=== PATIENT | male | born 1950 | race Caucasian/White ===

== ENCOUNTER 2020-09-22 11:57 | Outpatient (CLI) | payer BC ==
--- NOTE | 2020-09-22 13:58 | XRAY Report ---
PROCEDURE: Foot 3 View RT INDICATIONS: PAIN IN RIGHT 5TH METATARSAL TECHNIQUE: 3 views of the foot were acquired. COMPARISON: FINDINGS: Bones: No fractures or dislocations. No suspicious bony lesions. Soft tissues: No tibiotalar joint effusion. Achilles tendon appears normal. IMPRESSION: Normal right foot. No abnormality identified of the right fifth metatarsal. Reviewed by: Brian Silva on 09/22/2020 1:57 PM PDT Approved by: Brian Silva on 09/22/2020 1:57 PM PDT Station ID: [id number]
== END 2020-09-22 11:58 | disposition home or self-care (01) ==
LOC: DI.N 11:57
PROVIDERS: ATTEND Physician Assistant
DX: M79.671 Pain in right foot (principal)

== ENCOUNTER 2021-09-01 08:00 | Outpatient (CLI) | payer BC ==
[2021-09-01 16:46] LABS: BASOPHILS # (AUTO) 0.1 10^3/uL (0.0-0.1); BASOPHILS % (AUTO) 0.9 %; EOSINOPHILS # (AUTO) 0.1 10^3/uL (0.0-0.7); EOSINOPHILS % (AUTO) 2.5 %; HGB - HEMOGLOBIN 15.4 g/dL (14.0-18.0); LYMPHOCYTES # (AUTO) 1.5 10^3/uL (1.5-3.5); LYMPHOCYTES % (AUTO) 26.2 %; MEAN CORPUSCULAR HEMOGLOBIN 32.3 pg (27.0-31.0); MEAN CORPUSCULAR HGB CONC 33.5 g/dL (32.0-36.0); MEAN CORPUSCULAR VOLUME 96.4 fL (80.0-94.0); MEAN PLATELET VOLUME 12.2 fL (7.4-11.4); MONOCYTES # (AUTO) 0.6 10^3/uL (0.0-1.0); MONOCYTES % (AUTO) 10.8 %; NEUTROPHILS # (AUTO) 3.4 10^3/uL (1.5-6.6); NEUTROPHILS % (AUTO) 59.4 %; PLT - PLATELET COUNT 141 10^3/uL (130-450); RED BLOOD COUNT 4.77 10^6/uL (4.70-6.10); RED CELL DISTRIBUTION WIDTH 13.2 % (12.0-15.0); WHITE BLOOD COUNT 5.6 x10^3/uL (4.8-10.8)
[2021-09-01 16:59] LABS: ALBUMIN/GLOBULIN RATIO 1.1 (1.0-2.2); ALKALINE PHOSPHATASE 50 IU/L (42-121); ALT ALANINE AMINOTRANSFERASE 22 IU/L (10-60); AST ASPARTATE AMINOTRANSFERASE 15 IU/L (10-42); BILIRUBIN,TOTAL 0.7 mg/dL (0.2-1.0); BUN - BLOOD UREA NITROGEN 27 mg/dL (6-20); CALCIUM 8.9 mg/dL (8.5-10.3); CARBON DIOXIDE - CO2 25 mmol/L (21-32); CHLORIDE 103 mmol/L (101-111); CHOL/HDL RATIO 4.1 (<5.0); CHOLESTEROL 235 mg/dL; CREATININE 0.8 mg/dL (0.6-1.2); GFR - MDRD 96 (>89); GLUCOSE 106 mg/dL (70-100); HDL CHOLESTEROL 57 mg/dL; LDL CHOLESTEROL,CALCULATED 144 mg/dL; LDL/HDL RATIO 2.5 (<3.6); POTASSIUM 4.1 mmol/L (3.5-5.0); SODIUM 141 mmol/L (135-145); TOTAL PROTEIN 7.5 g/dL (6.7-8.2); TRIGLYCERIDES 172 mg/dL; VLDL CHOLESTEROL 34 mg/dL
[2021-09-01 17:11] LABS: THYROID STIMULATING HORMONE 2.69 uIU/mL (0.34-5.60)
[2021-09-05 12:58] LABS: ESTIMATED AVERAGE GLUCOSE 111 mg/dL (70-100); HEMOGLOBIN A1c% 5.5 % (4.27-6.07)
== END 2021-09-01 23:59 | disposition home or self-care (01) ==
LOC: LAB.R 08:00
PROVIDERS: ATTEND Internal Medicine
DX: G62.9 Polyneuropathy, unspecified (principal); M19.90 Unspecified osteoarthritis, unspecified site; Z11.59 Encounter for screening for other viral diseases; R63.5 Abnormal weight gain; Z80.42 Family history of malignant neoplasm of prostate; Z79.899 Other long term (current) drug therapy; R73.01 Impaired fasting glucose
CPT/HCPCS: 80053; 80061; 82607; 83036; 83721; 84153; 84443; 85025; 86803

== ENCOUNTER 2021-09-06 08:00 | Outpatient (CLI) | payer BC ==
[2021-09-07 05:29] LABS: HCV AB 0.2 s/co ratio (0.0-0.9)
== END 2021-09-06 23:59 | disposition home or self-care (01) ==
LOC: LAB.R 08:00
PROVIDERS: ATTEND Internal Medicine
DX: Z11.59 Encounter for screening for other viral diseases (principal)
CPT/HCPCS: 86803

== ENCOUNTER 2022-05-23 05:52 | Emergency (ER) | payer BC ==
[2022-05-23] MEDS ORDERED: SODIUM CHLORIDE 0.9% 1,000 ML IV STA (06:28)
[2022-05-23] MEDS ORDERED: MORPHINE 2 MG/ML CARPUJECT IVP STA (06:28)
[2022-05-23] MEDS ORDERED: KETOROLAC 30 MG/ML VIAL IVP STA (06:28)
[2022-05-23] MEDS ORDERED: ONDANSETRON 4 MG/2 ML VIAL IVP STA (06:28)
--- NOTE | 2022-05-23 06:35 | ED Physician Documentation ---
History of Present Illness - Stated complaint Stated Complaint: MALE /ABD PX - Chief complaint Chief Complaint: Abd Pain - Additonal information Additional information: Patient 71-year-old male presenting to the emergency department was right-sided flank and abdominal pain. Reports pain began on Saturday. Was on his way to the emergency department however it resolved Saturday evening. Shortly after this he had an episode of hematuria. Was seen by primary care and was told that he likely has kidney stones. Last night his pain returned. There is no associated fever, nausea or vomiting. He does report that he has had pink or red-tinged urine x1 day. Endorses for taking gabapentin for pain control. Denies history of kidney stones. Review of Systems Constitutional: denies: Fever Eyes: denies: Loss of vision Ears: denies: Loss of hearing Nose: denies: Rhinorrhea / runny nose Throat: denies: Dental pain / toothache Cardiac: denies: Chest pain / pressure Respiratory: denies: Dyspnea GI: reports: Abdominal Pain. denies: Nausea, Vomiting, Diarrhea : reports: Hematuria. denies: Dysuria PD PAST MEDICAL HISTORY - Past Medical History Past Medical History: Yes GI: Other - Past Surgical History Past Surgical History: Yes General: Appendectomy Ortho: Hip replacement - Allergies Allergies/Adverse Reactions: Allergies Allergy/AdvReac Type Severity Reaction Status Date / Time No Known Drug Allergies Allergy Verified 05/23/22 06:19 - Social History Does the pt smoke?: No Smoking Status: Never smoker Does the pt drink ETOH?: No Does the pt have substance abuse?: No - Immunizations Immunizations are current?: Yes - POLST Patient has POLST: No PD ED PE NORMAL - Vitals Vital signs reviewed: Yes - General General: Alert and oriented X 3, No acute distress - HEENT HEENT: Atraumatic - Neck Neck: Supple, no meningeal sign - Cardiac Cardiac: RRR - Respiratory Respiratory: No respiratory distress - Abdomen Abdomen: Normal bowel sounds, Non tender - Male Male : Deferred - Rectal Rectal: Deferred - Derm Derm: Normal color - Extremities Extremities: No deformity Results - Vitals Vitals: Vital Signs - 24 hr 05/23/22 05/23/22 05:55 06:30 Temperature 37.0 C Heart Rate 84 74 Respiratory 16 Rate Blood Pressure 147/105 H 144/107 H O2 Saturation 97 95 Oxygen O2 Source Room air PD Medical Decision Making - ED course Complexity details: other (Discussed with oncoming physician.) Drug Therapy Requiring Monitoring for Toxicity: IV morphine ED course: Patient 71-year-old male presenting to the emergency department with complaint of right-sided flank pain and hematuria. Afebrile, hematin stable on arrival to the emergency department. No focal tenderness, guarding, rebound or rigidity appreciated on abdominal exam. Initial differential diagnosis included but limited to nephrolithiasis, cystitis, pyelonephritis, bladder mass. Initial work-up ordered including fluids and medication for pain control. At this time we will be sending out to the oncoming physician, please see their documentation for further detail.
[2022-05-23 06:37] LABS: BASOPHILS % (AUTO) 0.7 %; EOSINOPHILS # (AUTO) 0.1 10^3/uL (0.0-0.7); EOSINOPHILS % (AUTO) 1.3 %; HCT - HEMATOCRIT 48.5 % (42.0-52.0); LYMPHOCYTES # (AUTO) 1.2 10^3/uL (1.5-3.5); LYMPHOCYTES % (AUTO) 19.4 %; MEAN CORPUSCULAR HEMOGLOBIN 32.1 pg (27.0-31.0); MEAN CORPUSCULAR VOLUME 97.4 fL (80.0-94.0); MONOCYTES # (AUTO) 0.6 10^3/uL (0.0-1.0); MONOCYTES % (AUTO) 10.5 %; NEUTROPHILS # (AUTO) 4.2 10^3/uL (1.5-6.6); NEUTROPHILS % (AUTO) 67.8 %; PLT - PLATELET COUNT 195 10^3/uL (130-450); RED BLOOD COUNT 4.98 10^6/uL (4.70-6.10); WHITE BLOOD COUNT 6.1 x10^3/uL (4.8-10.8)
[2022-05-23 06:38] LABS: GLUCOSE, URINE (UA) NEGATIVE (NEGATIVE); KETONES,URINE (UA) NEGATIVE (NEGATIVE); LEUKOCYTE ESTERASE, URINE NEGATIVE (NEGATIVE); NITRITE,URINE NEGATIVE (NEGATIVE); OCCULT BLOOD,URINE LARGE (NEGATIVE); PH,URINE 5.5 PH (5.0-7.5); PROTEIN,URINE 100 mg/dL (NEGATIVE); UROBILINOGEN,URINE 0.2 (NORMAL) E.U./dL (NORMAL)
[2022-05-23 06:46] LABS: ALBUMIN/GLOBULIN RATIO 1.1 (1.0-2.2); BILIRUBIN,TOTAL 0.8 mg/dL (0.2-1.0); CALCIUM 9.1 mg/dL (8.5-10.3); CREATININE 0.9 mg/dL (0.6-1.2); POTASSIUM 3.9 mmol/L (3.5-5.0); TOTAL PROTEIN 7.7 g/dL (6.7-8.2)
[2022-05-23] MEDS ORDERED: iohexoL-300 100 ML VIAL ONE (06:46)
[2022-05-23 06:48] LABS: BILIRUBIN,URINE NEGATIVE (NEGATIVE); CLARITY,URINE CLEAR (CLEAR); ICTOTEST,URINE NEGATIVE
[2022-05-23 06:49] LABS: BACTERIA,URINE Rare /HPF (None Seen); RBC,URINE TNTC /HPF (0-5); SQUAMOUS EPITHELIAL CELL,UR RARE Squamous (<= Few); WBC,URINE 0-3 /HPF (0-3)
[2022-05-23] MEDS ORDERED: iohexoL-300 100 ML VIAL IVP ONE (07:23)
--- NOTE | 2022-05-23 08:38 | CT Report ---
PROCEDURE: ABDOMEN/PELVIS W INDICATIONS: Rt flank pain CONTRAST: 100ml Omnipaque 300 TECHNIQUE: After the administration of intravenous contrast, 5 mm thick sections acquired from the diaphragms to the symphysis. 5 mm thick coronal and sagittal reformats were acquired. For radiation dose reducti on, the following was used: automated exposure control, adjustment of mA and/or kV according to liset ent size. COMPARISON: None. FINDINGS: Image quality: Suboptimal evaluation of the pelvis due to metallic artifact.. ABDOMEN: Lung bases: A couple of pulmonary micronodules in the left lung base, measuring no greater than 3 mm. Heart size is normal. Solid organs: Obstructing 7 mm stone within the distal right ureter (series 4, image 77); Hounsfield unit of 412. This results in mild upstream hydronephrosis. Punctate, nonobstructing left-sided stone. Peritoneum and bowel: Bowel loops demonstrate normal wall thickness and caliber. Colonic diverticul osis without evidence of diverticulitis. No free fluid or air. Nodes and vessels: No retroperitoneal or mesenteric adenopathy by size criteria. Aorta and inferior vena cava are normal in size. Miscellaneous: Tiny umbilical hernia containing fat. PELVIS: Genitourinary: Bladder wall thickness is normal. Penile calcifications. Miscellaneous: No inguinal hernias or adenopathy. Bones: No suspicious bony lesions. No vertebral body compression fractures. Bilateral total hip ar throplasties. IMPRESSION: 1. Obstructing 7 mm stone within the distal right ureter, resulting in mild upstream hydronephrosis. 2. A couple of pulmonary micronodules within the left lung base. Consider 12 month follow-up if this patient is at high risk for developing lung cancer, per Fleischner Society guidelines. 3. Penile calcifications, which may indicate Peyronie's disease. Reviewed by: Kai De La O on 05/23/2022 8:36 AM PST Approved by: Kai De La O on 05/23/2022 8:36 AM PST Station ID: [id number]
--- NOTE | 2022-05-23 09:03 | ED Physician Documentation ---
ED Addendum - Addendum Addendum: Patient received in signout. Plan for follow-up of CT scan. I did review these images. The impression is as listed below. I did review these results including incidental findings with the patient and family member at the bedside. Patient and family member indicate understanding of diagnosis and need for follow-up with PCP and urology. They are also advised on need for follow-up regarding the incidental findings of the pulmonary micronodules.Patient's labs were also reviewed. He does not appear septic. His urine does not demonstrate an infection and his renal function is normal. At this time I do not feel he needs emergent transfer for Urology. Patient is advised on concerning symptoms to return for. IMPRESSION: 1. Obstructing 7 mm stone within the distal right ureter, resulting in mild upstream hydronephrosis. 2. A couple of pulmonary micronodules within the left lung base. Consider 12 month follow-up if this patient is at high risk for developing lung cancer, per Fleischner Society guidelines. 3. Penile calcifications, which may indicate Peyronie's disease. Departure - Departure Disposition: 01 Home, Self Care Clinical Impression: Ureteral stone, Pulmonary nodules Condition: Stable Instructions: ED Nodule Solitary Pulmonary, ED Stone Renal W Colic Follow-Up: Radha Andrews MD [Provider Admit Priv/Credential] - Prescriptions: Tamsulosin [Flomax] 0.4 mg PO DAILY #14 cap Oxycodone HCl/Acetaminophen [Percocet 5-325 mg Tablet] 1 each PO Q6H PRN #14 tablet PRN Reason: pain Ondansetron Odt [Zofran] 4 mg TL Q6H PRN #10 tablet PRN Reason: Nausea / Vomiting Comments: You have a 7 mm stone in your right ureter which is the tube that connects your kidney to your bladder. I would recommend follow-up with a urologist. There is a urology practice in [place] with the information listed below. I have sent pain medication and nausea medications as well as Flomax to [facility] in [place].If you develop any worsening symptoms such as uncontrolled pain, fevers or have any new concerns please consider return to the ER. Your CT scan also showed some incidental findings including a couple of pulmonary micronodules within the left lung. I would recommend follow-up with your primary care doctor to follow the size of these nodules. If nodules grow in size that can be a sign of cancer. I am prescribing a short course of narcotic pain medication for you. These are potentially dangerous and addictive medications that should be used carefully. These medications may constipate you. Take an uhqi-qoy-minsevu stool softener (docusate) twice daily with plenty of water while taking these medications. If you go 24 hours without a bowel movement, take wanx-zzv-sxnzolk miralax, per package instructions. Do not drink or drive while taking these medications. If you received narcotic or sedating medications while in the emergency department, do not drive for 24 hours. Store this medication in a safe, secure place and out of reach of children. It is a violation of federal law to give or sell this medication to another person or to use in a manner other than prescribed. The ED will not refill narcotic prescriptions, including prescriptions lost or stolen. To dispose of unwanted medications: 1. [facility] at [address] [facility] in [place] has a medication drop box. They accept prescription medications (in pill form) Saturday through Saturday 9:00 a.m. to 5:00 p.m. 2. The [facility] [employer] accepts prescription medications (in pill form only) for disposal year round. Call for more information. 3. Contact the [facility] for the next [facility] sponsored prescription drug collection event. , [phone], or [phone]; Note that many narcotic pain relievers also contain Tylenol/acetaminophen. Please ensure that your total dose of acetaminophen from all sources does not exceed 3 g (3000 mg) per day. [facility] [address] [place] [address], [place] [address] [place] [id number] P: [phone] F: [phone] HOURS SaturdayFr 8:[address]5:[address] RESULTS IMPRESSION: 1. Obstructing 7 mm stone within the distal right ureter, resulting in mild upstream hydronephrosis. 2. A couple of pulmonary micronodules within the left lung base. Consider 12 month follow-up if this patient is at high risk for developing lung cancer, per Fleischner Society guidelines. 3. Penile calcifications, which may indicate Peyronie's disease. Discharge Date/Time: 05/23/22 09:17
[2022-05-23 09:16] VITALS: BP 134/100
== END 2022-05-23 09:17 | disposition home or self-care (01) ==
LOC: ED 05:52
DX: N13.2 Hydronephrosis with renal and ureteral calculous obstruction (principal); R91.8 Other nonspecific abnormal finding of lung field
CPT/HCPCS: 36415; 74177; 80053; 81001; 83605; 83690; 85025; 96374; 99284; Q9967; 81003; 87086

== ENCOUNTER 2022-07-09 10:55 | Outpatient (CLI) | payer BC ==
--- NOTE | 2022-07-09 16:41 | CT Report ---
PROCEDURE: PELVIS WO INDICATIONS: RIGHT URETERAL CALCULUS TECHNIQUE: Noncontrast 3 mm axial sections acquired through the bony pelvis, with coronal and sagittal reformatt ing. For radiation dose reduction, the following was used: automated exposure control, adjustment of mA and/or kV according to patient size. COMPARISON: None. FINDINGS: Image quality: Diagnostic Kidneys and Ureters: Interval placement of right ureteral stent which appears to be appropriately po sitioned. There is new mild periureteral stranding. Interval improvement in degree of right-sided hyd roureteronephrosis. Previously seen distal right ureteral stone measuring approximately 7 mm is not n oted near the ureterovesicular junction as before. There is a calculus noted more proximally within t he right ureter measuring approximately 5 mm in size which may represent a separate urolith versus re trograde migration of previously seen stone. This is seen on coronal image 40/series 8 and axial imag e 29/series 6. On the left, redemonstration of nonobstructing punctate renal stone. No left-sided hydronephrosis. Le ft ureter is normal in course and caliber. Stomach and Bowel: Visualized bowel appear unremarkable. No evidence for obstruction or acute inflam matory changes. Scattered colonic diverticulosis without acute diverticulitis. Peritoneum: No abnormal intraperitoneal fluid. No free air. Vessels: Aorta and inferior vena cava are normal in size. Atherosclerosis. Pelvic Organs: Unremarkable as visualized. Bladder: Unremarkable. Urinary bladder wall is normal for degree of distention. No significant per ivesicular stranding. Pelvic Nodes: No pathologically enlarged pelvic lymph nodes. Miscellaneous: No inguinal hernias seen. Bones: No acute compression fractures. No suspicious osseous lesions. Significant beam hardening a nd streak artifact from a lateral total hip arthroplasty hardware. This limits evaluation of the lowe r pelvis. IMPRESSION: 1. Interval placement of right ureteral stent which appears to be appropriate position. Persistent bu t decreased prominence of mild right hydronephrosis. 2. Previously seen 7 mm distal right ureteral stone noted a short distance proximal to the right uret erovesicular junction is no longer visualized. No urinary bladder stone. However, there is a 5 mm viraj culus noted in the distal right ureter which may represent either a separate/different urolith versus possible retrograde migration of previously seen distal ureteral stone. There is new right periurete ral stranding which may be related to recent intervention. Concurrent infectious uropathy not exclude d if clinically appropriate. 3. Redemonstration of small punctate nonobstructing left renal stone. No evidence for hydroureteronep hrosis or acute inflammatory changes. 4. Colonic diverticulosis without acute diverticulitis. 5. Atherosclerosis. Reviewed by: Yuri Roldan MD on 07/09/2022 4:39 PM PDT Approved by: Yuri Roldan MD on 07/09/2022 4:39 PM PDT Station ID: [id number]
== END 2022-07-09 10:56 | disposition home or self-care (01) ==
LOC: DI 10:55
PROVIDERS: ATTEND Urology
DX: N13.30 Unspecified hydronephrosis (principal); N20.2 Calculus of kidney with calculus of ureter; K57.30 Diverticulosis of large intestine without perforation or abscess without bleeding; I70.0 Atherosclerosis of aorta

== ENCOUNTER 2023-05-31 09:17 | Outpatient (CLI) | payer BC ==
--- NOTE | 2023-05-31 09:54 | CT Report ---
PROCEDURE: Chest WO INDICATIONS: PULMONARY NODULES TECHNIQUE: A CT scan of the chest was performed. Intravenous contrast media was not administered. Images were re corded and evaluated at appropriate window settings. Reformats: axial MIP of the chest, coronal and s agittal. For radiation dose reduction, the following was used: automated exposure control, adjustment of mA and/or kV according to patient size. COMPARISON: CT abdomen and pelvis 05/23/2022 FINDINGS: Image quality: Diagnostic. Chest wall and lower neck: No thyroid nodule which requires sonographic follow up. No axillary or sup raclavicular adenopathy by size. Lungs and pleura: Minimal arthritic changes in the left upper lobe, anterior segment adjacent to narendra r fissure.. No pleural effusions. No pneumothorax. No suspicious pulmonary nodules which require fol low up. Mediastinum: Heart size is normal. No pericardial effusion. No large vessel abnormality. No mediastin al adenopathy by size criteria. Bones: No aggressive osseous abnormality. Upper Abdomen: Obesity. IMPRESSION: 1. Minimal atelectatic changes seen in the left lung most likely due to pulmonary hyperexpansion rela andrew to obesity. If clinical concern for pneumonia then follow-up CT chest with no contrast in one mon th may provide additional diagnostic benefit. 2. No suspicious pulmonary nodules seen Reviewed by: Jayce Timmons MD on 05/31/2023 9:53 AM [facility] Approved by: Jayce Timmons MD on 05/31/2023 9:53 AM [facility] Station ID: [id number]
== END 2023-05-31 09:18 | disposition home or self-care (01) ==
LOC: DI 09:17
PROVIDERS: ATTEND Internal Medicine
DX: R91.8 Other nonspecific abnormal finding of lung field (principal); J98.11 Atelectasis

== ENCOUNTER 2023-11-13 07:38 | Emergency (ER) | payer BC, MEDICARE ==
--- NOTE | 2023-11-13 08:21 | ED Physician Documentation ---
History of Present Illness - Stated complaint Stated Complaint: THROAT DISCOMFORT - Chief complaint Chief Complaint: Resp - History obtained from History obtained from: Patient - History of Present Illness Timing: Today Pain level max: 2 Pain level now: 2 - Additonal information Additional information: Patient is a 73-year-old male who states that he has a sensation of a foreign body/constriction in his throat. He states that this started this morning. He states his voice sounds "gravelly". No fevers, cough, congestion. He states he tried to make himself vomit this morning to see if that would clear the sensation but it did not clear. Does not recall choking on any food last night. No abdominal pain. No chest pain. He states that he feels like his breathing is mildly more difficult at the level of the foreign body sensation. Review of Systems Constitutional: denies: Fever, Chills Respiratory: denies: Cough GI: denies: Vomiting, Diarrhea Skin: denies: Rash Musculoskeletal: denies: Neck pain, Back pain Neurologic: denies: Headache PD PAST MEDICAL HISTORY - Past Medical History GI: Other - Past Surgical History Past Surgical History: Yes General: Appendectomy Ortho: Hip replacement - Present Medications Home Medications: Ambulatory Orders Medication Instructions Recorded Confirmed Ondansetron Odt [Zofran] 4 mg TL Q6H PRN #10 tablet 05/23/22 Oxycodone HCl/Acetaminophen 1 each PO Q6H PRN #14 tablet 05/23/22 [Percocet 5-325 mg Tablet] Tamsulosin [Flomax] 0.4 mg PO DAILY #14 cap 05/23/22 - Allergies Allergies/Adverse Reactions: Allergies Allergy/AdvReac Type Severity Reaction Status Date / Time No Known Drug Allergies Allergy Verified 11/13/23 07:59 - Social History Does the pt smoke?: No Smoking Status: Never smoker Does the pt drink ETOH?: No Does the pt have substance abuse?: No - Immunizations Immunizations are current?: Yes - POLST Patient has POLST: No PD ED PE NORMAL - Vitals Vital signs reviewed: Yes - General General: Alert and oriented X 3, No acute distress - HEENT HEENT: PERRL, Moist mucous membranes, Pharynx benign - Neck Neck: Supple, no meningeal sign - Cardiac Cardiac: RRR, Strong equal pulses - Respiratory Respiratory: No respiratory distress, Clear bilaterally - Abdomen Abdomen: Soft, Non tender, Non distended - Derm Derm: Warm and dry - Neuro Neuro: Alert and oriented X 3 - Psych Psych: Normal mood, Normal affect Results - Vitals Vitals: Vital Signs - 24 hr 11/13/23 11/13/23 07:52 09:47 Temperature 36.3 C L Heart Rate 94 74 Respiratory 22 22 Rate Blood Pressure 163/79 H 177/98 H O2 Saturation 97 96 Oxygen O2 Source Room air - Labs Labs: Laboratory Tests 11/13/23 11/13/23 11/13/23 08:20 08:20 08:25 WBC 5.3 RBC 4.44 L Hgb 14.6 Hct 42.9 MCV 96.6 H MCH 32.9 H MCHC 34.0 RDW 12.9 Plt Count 126 L MPV 10.6 Neut # (Auto) 4.0 Lymph # (Auto) 0.7 L Coffee # (Auto) 0.5 Eos # (Auto) 0.1 Baso # (Auto) 0.1 Absolute Nucleated RBC 0.00 Nucleated RBC % 0.0 Sodium 135 Potassium 3.9 Chloride 103 Carbon Dioxide 26 Anion Gap 6.0 BUN 24 H Creatinine 0.8 Estimated GFR (MDRD) 95 Glucose 112 H Calcium 8.7 Group A Strep Rapid Negative - Rads (name of study) CT soft tissue neck Relevant Findings:: Final report received, See rad report PD Medical Decision Making - ED course Complexity details: reviewed results, re-evaluated patient, considered differential, d/w patient ED course: Patient was given a dose of dexamethasone in the emergency department. His feeling of constriction in his throat has resolved, he is back to his normal speaking voice. He is eating and drinking without difficulty. No evidence of obstruction. Rapid strep is negative. Unclear etiology of his symptoms, possible that there is a small foreign body on the right of the throat, but as he is feeling better, eating and drinking without difficulty and no evidence of aspiration, no stridor or wheezing. We will have him monitor at home to see if this continues to improve. No indication for antibiotics. Evidence of abscess. Patient counseled regarding signs and symptoms for which I believe and urgent re-evaluation would be necessary. Patient with good understanding of and agreement to plan and is comfortable going home at this time This document was made in part using voice recognition software. While efforts are made to proofread this document, sound alike and grammatical errors may occur. Departure - Departure Disposition: 01 Home, Self Care Clinical Impression: Throat swelling Condition: Good Instructions: ED Pharyngitis Viral Follow-Up: Radha Andrews MD [Primary Care Provider] - Comments: As we discussed you do have prominent tonsillar tissues but there is no drainable fluid collection or abscess. There is some low-density material on the right side of your throat, this may be secretions such as saliva, fluid or a small amount of ingested material. This should continue to improve with the steroid you were given today. It is recommended that you follow-up with your doctor for endoscopy if your symptoms are not improving as expected. If you feel your symptoms are worsening, you have trouble breathing, speaking or swallowing, return to the emergency department. Your CT scan also does show stenosis in your right intracranial vertebral artery. This is likely due to atherosclerosis, it is recommended you follow-up with your doctor regarding this. Please make a follow-up appointment with them within the next week. I have included the copy of your CT scan below. EXAM: [id number] CT/NECKW ([id number]) PROCEDURE: Soft Tissue Neck W INDICATIONS: throat swelling, FB sensation CONTRAST: Omni 300 100ml TECHNIQUE: After the administration of intravenous contrast, 3.0 mm axial sections acquired from the sella to the aortic arch. Additional oblique axial 3.0 mm sections acquired through the pharynx. 3 mm thick coronal reformats were generated. For radiation dose reduction, the following was used: automated exposure control, adjustment of mA and/or kV according to patient size. COMPARISON: None. 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 There is also mild to moderate areas of irregularity in the intracranial arteries partially visualized. Orbits: Unremarkable orbits. Ectatic appearing ophthalmic veins, of uncertain clinical significance Mouth and pharynx: Prominent appearing tonsillar tissues, without drainable abscess/fluid collection. At the level of the glottis, there is slightly asymmetric appearance, with slight deviation of the airway to the left (for example axial image 2/68). Airway: Overall patent. There is slight leftward deviation at the level of the glottis (coronal image 73) Neck spaces: Ectatic venous structures draining into the EJ branches from the dilated ophthalmic veins. No pathologic lymph nodes by size criteria Glands: Salivary gland fatty atrophy. Thyroid is unremarkable Vessels: No significant extracranial abnormality Upper chest: Unremarkable. No apical pneumothorax. Sinuses and mastoids: No significant opacification. Bones: No acute or suspicious osseous abnormality. IMPRESSION: Prominent tonsillar tissues without drainable fluid collection. Asymmetric appearance at the level of the glottis, with slight deviation of the airway to the left due to low density material. This could represent retained secretions, fluid, or ingested material. If there is sufficient concern, endoscopy could further evaluate. High-grade stenosis incidentally noted right intracranial vertebral artery. Mild to moderate intracranial irregularity also noted likely intracranial atherosclerosis. Ectatic appearing ophthalmic veins draining into the external jugular branches of uncertain clinical significance. Other findings above. Forms: PCP List Discharge Date/Time: 11/13/23 10:16
[2023-11-13] MEDS ORDERED: iohexoL-300 100 ML VIAL ONE (08:22)
[2023-11-13] MEDS: DEXAMETHASONE 10 MG/ML VIAL IVP STA (08:23)
[2023-11-13 08:26] LABS: BASOPHILS # (AUTO) 0.1 10^3/uL (0.0-0.1); BASOPHILS % (AUTO) 0.9 %; EOSINOPHILS # (AUTO) 0.1 10^3/uL (0.0-0.7); EOSINOPHILS % (AUTO) 1.3 %; HCT - HEMATOCRIT 42.9 % (42.0-52.0); HGB - HEMOGLOBIN 14.6 g/dL (14.0-18.0); LYMPHOCYTES # (AUTO) 0.7 10^3/uL (1.5-3.5); LYMPHOCYTES % (AUTO) 12.5 %; MEAN CORPUSCULAR HEMOGLOBIN 32.9 pg (27.0-31.0); MEAN CORPUSCULAR VOLUME 96.6 fL (80.0-94.0); MEAN PLATELET VOLUME 10.6 fL (7.4-11.4); MONOCYTES # (AUTO) 0.5 10^3/uL (0.0-1.0); MONOCYTES % (AUTO) 9.1 %; PLT - PLATELET COUNT 126 10^3/uL (130-450); RED BLOOD COUNT 4.44 10^6/uL (4.70-6.10); RED CELL DISTRIBUTION WIDTH 12.9 % (12.0-15.0); WHITE BLOOD COUNT 5.3 x10^3/uL (4.8-10.8)
[2023-11-13 08:38] LABS: CALCIUM 8.7 mg/dL (8.5-10.3); CREATININE 0.8 mg/dL (0.6-1.3); POTASSIUM 3.9 mmol/L (3.5-4.5)
[2023-11-13 09:14] LABS: RAPID STREP SCREEN Negative (Negative)
[2023-11-13] MEDS: iohexoL-300 100 ML VIAL IVP ONE (09:20)
--- NOTE | 2023-11-13 09:37 | CT Report ---
PROCEDURE: Soft Tissue Neck W INDICATIONS: throat swelling, FB sensation CONTRAST: Omni 300 100ml TECHNIQUE: After the administration of intravenous contrast, 3.0 mm axial sections acquired from the sella to th e aortic arch. Additional oblique axial 3.0 mm sections acquired through the pharynx. 3 mm thick co steve reformats were generated. For radiation dose reduction, the following was used: automated exp osure control, adjustment of mA and/or kV according to patient size. COMPARISON: None. 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 There is also mild to mo derate areas of irregularity in the intracranial arteries partially visualized. Orbits: Unremarkable orbits. Ectatic appearing ophthalmic veins, of uncertain clinical significance Mouth and pharynx: Prominent appearing tonsillar tissues, without drainable abscess/fluid collection. At the level of the glottis, there is slightly asymmetric appearance, with slight deviation of the a irway to the left (for example axial image 2/68). Airway: Overall patent. There is slight leftward deviation at the level of the glottis (coronal image 73) Neck spaces: Ectatic venous structures draining into the EJ branches from the dilated ophthalmic vein s. No pathologic lymph nodes by size criteria Glands: Salivary gland fatty atrophy. Thyroid is unremarkable Vessels: No significant extracranial abnormality Upper chest: Unremarkable. No apical pneumothorax. Sinuses and mastoids: No significant opacification. Bones: No acute or suspicious osseous abnormality. IMPRESSION: Prominent tonsillar tissues without drainable fluid collection. Asymmetric appearance at the level of the glottis, with slight deviation of the airway to the left due to low density material. This could represent retained secretions, fluid, or ingested material. If there is sufficient concern, endoscop y could further evaluate. High-grade stenosis incidentally noted right intracranial vertebral artery. Mild to moderate intracra nial irregularity also noted likely intracranial atherosclerosis. Ectatic appearing ophthalmic veins draining into the external jugular branches of uncertain clinical significance. Other findings above. Reviewed by: Abhishek Guidry MD on 11/13/2023 9:35 AM PDT Approved by: Abhishek Guidry MD on 11/13/2023 9:35 AM PDT Station ID: [id number]
[2023-11-13 09:50] VITALS: BP 177/98; O2SAT 96
== END 2023-11-13 10:16 | disposition home or self-care (01) ==
LOC: ED 07:38
DX: R22.1 Localized swelling, mass and lump, neck (principal)
CPT/HCPCS: 36415; 70491; 80048; 85025; 87070; 87430; 96374; 99283; 99284; Q9967